=== PATIENT | female | born 1995 | race Hispanic/Latino ===

== ENCOUNTER 2021-01-13 20:55 | Emergency (ER) | payer OTHER | END 2021-01-13 21:43 | disposition left against medical advice (07) | LOC: ED 20:55 | DX: O26.891 Other specified pregnancy related conditions, first trimester (principal); Z3A.01 Less than 8 weeks gestation of pregnancy; Z53.21 Procedure and treatment not carried out due to patient leaving prior to being seen by health care provider ==